=== PATIENT | male | born 1940 | race Caucasian/White ===

== ENCOUNTER 2017-11-16 08:39 | Emergency (ER) | payer MEDICARE ==
[~2017-11-16] VITALS: Ht 162.6 cm; Wt 85.8 kg
[2017-11-16 08:44] VITALS: BP 104/61; PULSE 83; RESP 18; TEMP 97.5; O2SAT 94
[2017-11-16] MEDS ORDERED: PANT40TA3 PO (08:56)
[2017-11-16] MEDS ORDERED: TAMS0.4C4 PO (08:56)
[2017-11-16] MEDS ORDERED: MULTTAB67 PO (08:56)
[2017-11-16] MEDS ORDERED: LISI10TA3 PO (08:56)
[2017-11-16] MEDS ORDERED: SODIUM CHLORIDE 0.9% FLUSH 10 ML FLUSH IVF PRN (09:00)
[2017-11-16 09:05] VITALS: O2SAT 96
[2017-11-16 09:08] LABS: AUTOMATED NEUTROPHIL # 6.2 TH/MM3 (1.8-7.7); BASOPHIL # 0.1 TH/MM3 (0-0.2); BASOPHIL % 0.9 % (0.0-2.0); EOSINOPHIL # 0.2 TH/MM3 (0-0.4); EOSINOPHIL % 2.1 % (0.0-4.0); HEMATOCRIT 42.7 % (39.0-51.0); HEMOGLOBIN 14.1 GM/DL (13.0-17.0); LYMPH % 25.5 % (9.0-44.0); LYMPHOCYTE # 2.6 TH/MM3 (1.0-4.8); MEAN CELL VOLUME 94.7 FL (80.0-100.0); MEAN CORPUSCULAR HEMOGLOBIN 31.3 PG (27.0-34.0); MEAN PLATELET VOLUME 8.5 FL (7.0-11.0); MONO % 9.8 % (0.0-8.0); NEUT % 61.7 % (16.0-70.0); PLATELET COUNT 270 TH/MM3 (150-450); RED BLOOD COUNT 4.51 MIL/MM3 (4.50-5.90); RED CELL DISTRIBUTION WIDTH 13.2 % (11.6-17.2); WHITE BLOOD COUNT 10.1 TH/MM3 (4.0-11.0)
[2017-11-16 09:14] LABS: CHLORIDE 101 MEQ/L (98-107); SODIUM (NA) 134 MEQ/L (136-145)
[2017-11-16 09:19] LABS: ALBUMIN 3.5 GM/DL (3.4-5.0)
[2017-11-16 09:22] LABS: ALT (GPT) 80 U/L (12-78); AST (GOT) 32 U/L (15-37); GLOMERULAR FILTRATION RATE 42 ML/MIN (>89)
[2017-11-16 09:23] LABS: TOTAL PROTEIN 8.6 GM/DL (6.4-8.2)
[2017-11-16 09:25] LABS: ALKALINE PHOSPHATASE 88 U/L (45-117)
--- NOTE | 2017-11-16 09:25 | PD ---
HPI Chief Complaint: General Weakness Time Seen by Provider: 09:12 Travel History International Travel<30 days: No Contact w/Intl Traveler<30days: No Traveled to known affect area: No History of Present Illness HPI 77-year-old male patient with history of renal failure requiring dialysis a year ago according to his daughter, no longer on dialysis, but presents to the ER today for a week and a half history of general weakness, had one episode of vomiting last week, poor p.o. intake, and states that his right foot had been hurting after he hit it on something last week. He denies any fevers, chest pains, abdominal pain, diarrhea, or any other issues. His daughter is concerned because this is the same symptoms he had before he had problems with his kidneys. Modifying Factors: None Associated Signs & Symptoms: general weakness for a week and a half Risk Factors: history of kidney disease PFSH Past Medical History GERD: Yes Hypertension: Yes Past Surgical History Other Surgery: Yes (dialysis 5 yrs ago) Social History Alcohol Use: Yes Tobacco Use: No Substance Use: No Allergies-Medications (Allergen,Severity, Reaction): Coded Allergies: No Known Allergies (Unverified , 11/16/17) Reported Meds & Prescriptions Reported Meds & Active Scripts Active Reported Tamsulosin (Tamsulosin HCl) 0.4 Mg Cap 0.4 Mg PO HS Multiple Vitamin 1 Tab 1 Tab PO DAILY Lisinopril 10 Mg Tab 10 Mg PO DAILY Pantoprazole (Pantoprazole Sodium) 40 Mg Tab 40 Mg PO DAILY Review of Systems Except as stated in HPI: all other systems reviewed are Neg Physical Exam Narrative GENERAL: Well-developed elderly white male patient currently in mild distress. Awake, alert, oriented 3. SKIN: Focused skin assessment warm/dry. There is mild tenderness over the right midfoot area. No palpable deformities. HEAD: Atraumatic. Normocephalic. EYES: Pupils equal and round. No scleral icterus. No injection or drainage. ENT: No nasal bleeding or discharge. Mucous membranes pink and moist. NECK: Trachea midline. No JVD. Supple. CARDIOVASCULAR: Regular rate and rhythm. No murmur appreciated. RESPIRATORY: No accessory muscle use. Clear to auscultation. Breath sounds equal bilaterally. GASTROINTESTINAL: Abdomen soft, non-tender, nondistended. Hepatic and splenic margins not palpable. MUSCULOSKELETAL: No obvious deformities. No clubbing. No cyanosis. No edema. NEUROLOGICAL: Awake and alert. No obvious cranial nerve deficits. Motor grossly within normal limits. Normal speech. PSYCHIATRIC: Appropriate mood and affect; insight and judgment normal. Data Data Last Documented VS Vital Signs Date Time Temp Pulse Resp B/P (MAP) Pulse Ox O2 Delivery O2 Flow Rate FiO2 11/16/17 10:52 64 20 140/77 (98) 97 11/16/17 08:44 97.5 Orders Orders Electrocardiogram (11/16/17 08:50) Complete Blood Count With Diff (11/16/17 08:50) Comprehensive Metabolic Panel (11/16/17 08:50) Magnesium (Mg) (11/16/17 08:50) Ckmb (Isoenzyme) Profile (11/16/17 08:50) Troponin I (11/16/17 08:50) Urinalysis - C+S If Indicated (11/16/17 08:50) Ecg Monitoring (11/16/17 08:50) Iv Access Insert/Monitor (11/16/17 08:50) Oximetry (11/16/17 08:50) Sodium Chloride 0.9% Flush (Ns Flush) (11/16/17 09:00) Foot, Limited (2vws) (11/16/17 09:12) Chest, Single Ap (11/16/17 09:12) Ct Brain W/O Iv Contrast(Rout) (11/16/17 09:12) Influenzae A/B Antigen (11/16/17 09:12) Labs Laboratory Tests Test 11/16/17 09:00 11/16/17 10:35 White Blood Count 10.1 TH/MM3 Red Blood Count 4.51 MIL/MM3 Hemoglobin 14.1 GM/DL Hematocrit 42.7 % Mean Corpuscular Volume 94.7 FL Mean Corpuscular Hemoglobin 31.3 PG Mean Corpuscular Hemoglobin Concent 33.0 % Red Cell Distribution Width 13.2 % Platelet Count 270 TH/MM3 Mean Platelet Volume 8.5 FL Neutrophils (%) (Auto) 61.7 % Lymphocytes (%) (Auto) 25.5 % Monocytes (%) (Auto) 9.8 % Eosinophils (%) (Auto) 2.1 % Basophils (%) (Auto) 0.9 % Neutrophils # (Auto) 6.2 TH/MM3 Lymphocytes # (Auto) 2.6 TH/MM3 Monocytes # (Auto) 1.0 TH/MM3 Eosinophils # (Auto) 0.2 TH/MM3 Basophils # (Auto) 0.1 TH/MM3 CBC Comment DIFF FINAL Differential Comment Blood Urea Nitrogen 44 MG/DL Creatinine 1.60 MG/DL Random Glucose 168 MG/DL Total Protein 8.6 GM/DL Albumin 3.5 GM/DL Calcium Level 9.5 MG/DL Magnesium Level 2.3 MG/DL Alkaline Phosphatase 88 U/L Aspartate Amino Transf (AST/SGOT) 32 U/L Alanine Aminotransferase (ALT/SGPT) 80 U/L Total Bilirubin 1.0 MG/DL Sodium Level 134 MEQ/L Potassium Level 4.2 MEQ/L Chloride Level 101 MEQ/L Carbon Dioxide Level 21.6 MEQ/L Anion Gap 11 MEQ/L Estimat Glomerular Filtration Rate 42 ML/MIN Total Creatine Kinase 71 U/L Troponin I LESS THAN 0.02 NG/ML Urine Collection Type CLEAN CATCH Urine Color YELLOW Urine Turbidity CLEAR Urine pH 5.5 Urine Specific [place] 1.016 Urine Protein NEG mg/dL Urine Glucose (UA) NEG mg/dL Urine Ketones NEG mg/dL Urine Occult Blood NEG Urine Nitrite NEG Urine Bilirubin NEG Urine Leukocyte Esterase NEG Urine WBC 0-2 /hpf Urine Squamous Epithelial Cells 0-5 /hpf Urine Bacteria FEW /hpf Urine Hyaline Casts 0-2 /lpf Microscopic Urinalysis Comment CULT NOT INDICATED MDM Medical Decision Making Medical Screen Exam Complete: Yes Emergency Medical Condition: Yes Medical Record Reviewed: Yes Interpretation(s) EKG shows NSR, no ST elevation or depression, and no arrhythmias. No significant T-wave inversions. Laboratory Tests Test 11/16/17 09:00 11/16/17 10:35 Monocytes (%) (Auto) 9.8 % (0.0-8.0) Monocytes # (Auto) 1.0 TH/MM3 (0-0.9) Blood Urea Nitrogen 44 MG/DL (7-18) Creatinine 1.60 MG/DL (0.60-1.30) Random Glucose 168 MG/DL (74-106) Total Protein 8.6 GM/DL (6.4-8.2) Alanine Aminotransferase (ALT/SGPT) 80 U/L (12-78) Sodium Level 134 MEQ/L (136-145) Estimat Glomerular Filtration Rate 42 ML/MIN (>89) Troponin I LESS THAN 0.02 NG/ML Urine Bacteria FEW /hpf (NONE) Last [address] 11/16/17911 Signed Impressions: Service Date/Time: Thursday, November 16, 2017 09:35 - CONCLUSION: 1. No acute findings in the brain. No extra-axial fluid collections. 2. Symmetric bilateral hypoattenuation in the frontal white matter and lacunar infarct of the left striatum. 1. Robby Porras MD Foot X-Ray 11/16/17911 Signed Impressions: Service Date/Time: Thursday, November 16, 2017 09:27 - CONCLUSION: No evidence of recent bony injury. Robby Porras MD Chest X-Ray 11/16/17911 Signed Impressions: Service Date/Time: Thursday, November 16, 2017 09:27 - CONCLUSION: The lungs are clear. Robby Porras MD Differential Diagnosis General weakness: Dehydration versus influenza/viral syndrome versus pneumonia versus sepsis versus metabolic issues versus dysrhythmias versus ACS Narrative Course Lab work and x-rays did not show any signs of significant acute processes. His BUN and creatinine is mildly elevated, likely secondary to mild dehydration, patient has not been taking good p.o. intake. He is not vomiting, abdomen is benign, he has no focal neurological deficits. Vital signs are stable in the ER. Influenza testing is negative. CAT scan did not show any signs of acute intracranial processes. At this point, my plan would be to have him follow-up with his regular doctor. Return for new issues as needed. The plan has been discussed with the patient and daughter and they state understanding. I would encourage him to eat and drink on a more consistent basis. Diagnosis Primary Impression: General weakness Additional Impression: Mild dehydration Disposition: 01 DISCHARGE HOME Condition: Stable Isamar Willard MD Nov 16, 2017 09:25
--- NOTE | 2017-11-16 09:48 | RADRPT ---
EXAM DATE/TIME: 11/16/2017 09:27 [facility] COMPARISON: No previous studies available for comparison. INDICATIONS : Weakness, palpitations. MEDICAL HISTORY : Hypertension. Gastroesophageal reflux disease. History of dialysis. Gout. SURGICAL HISTORY : None. ENCOUNTER: Initial ACUITY: 1 week PAIN SCORE: 2/10 LOCATION: chest FINDINGS: A single view of the chest demonstrates the lungs to be symmetrically aerated without evidence of mas s, infiltrate or effusion. The cardiomediastinal contours are unremarkable. Osseous structures are intact. CONCLUSION: The lungs are clear. Robby Porras MD on November 16, 2017 at 9:46 Board Certified Radiologist. This report was verified electronically.
--- NOTE | 2017-11-16 09:49 | RADRPT ---
EXAM DATE/TIME: 11/16/2017 09:27 [facility] COMPARISON: No previous studies available for comparison. INDICATIONS : Right dorsal foot pain & redness after hitting it one week ago. Patient states it may be gout. MEDICAL HISTORY : Hypertension. Gastroesophageal reflux disease. History of dialysis.Gout. SURGICAL HISTORY : None. ENCOUNTER: Initial ACUITY: 1 week PAIN SCORE: 8/10 LOCATION: Right dorsal foot FINDINGS: Two view examination of the right foot demonstrates no soft tissue swelling, dislocation, or fracture . The calcaneus is intact. Moderate-sized retrocalcaneal spur. No radiopaque foreign bodies. Bony mineralization is normal. CONCLUSION: No evidence of recent bony injury. Robby Porras MD on November 16, 2017 at 9:47 Board Certified Radiologist. This report was verified electronically.
[2017-11-16 09:52] LABS: CALCIUM 9.5 MG/DL (8.5-10.1)
[2017-11-16 09:53] VITALS: BP 138/69; PULSE 71; RESP 20; O2SAT 96
[2017-11-16 09:53] LABS: BICARBONATE 21.6 MEQ/L (21.0-32.0); GLUCOSE,RANDOM 168 MG/DL (74-106); MAGNESIUM 2.3 MG/DL (1.5-2.5)
--- NOTE | 2017-11-16 09:55 | RADRPT ---
EXAM DATE/TIME: 11/16/2017 09:35 [facility] COMPARISON: No previous studies available for comparison. INDICATIONS : Generalized weakness for one week. RADIATION DOSE: 56.67 CTDIvol (mGy) MEDICAL HISTORY : Hypertension. Gastroesophageal reflux disease. Renal disease. SURGICAL HISTORY : Head surgery. ENCOUNTER: Initial ACUITY: 1 week PAIN SCALE: 0/10 LOCATION: cranial TECHNIQUE: Multiple contiguous axial images were obtained of the head. Using automated exposure control and adj ustment of the mA and/or kV according to patient size, radiation dose was kept as low as reasonably a chievable to obtain optimal diagnostic quality images. DICOM format image data is available electro nically for review and comparison. FINDINGS: CEREBRUM: The ventricles are normal for age. There is some decreased attenuation in the white matter adjacent to frontal horns and in the frontal barbour radiata. Old lacunar infarct in the anterior left striatu m. No evidence of midline shift, mass lesion, hemorrhage or acute infarction. No extra-axial fluid collections are seen. POSTERIOR FOSSA: The cerebellum and brainstem are intact. The 4th ventricle is midline. The cerebellopontine angle i s unremarkable. EXTRACRANIAL: The visualized portion of the orbits is intact. SKULL: Bilateral frontal andra holes. The calvarium is otherwise intact. CONCLUSION: 1. No acute findings in the brain. No extra-axial fluid collections. 2. Symmetric bilateral hypoattenuation in the frontal white matter and lacunar infarct of the left st riatum. 1. Robby Porras MD on November 16, 2017 at 9:51 Board Certified Radiologist. This report was verified electronically.
[2017-11-16 10:01] LABS: TROPONIN I LESS THAN 0.02 NG/ML (0.02-0.05)
[2017-11-16 10:09] LABS: BLOOD UREA NITROGEN 44 MG/DL (7-18)
[2017-11-16 10:43] LABS: BILIRUBIN, URINE NEG (NEG); BLOOD, URINE NEG (NEG); GLUCOSE,URINE NEG (NEG); KETONE, URINE NEG (NEG); NITRITE,URINE NEG (NEG); PH, URINE 5.5 (5.0-8.5); URINE LEUKOCYTE ESTERASE NEG (NEG)
[2017-11-16 10:50] LABS: URINE COLOR YELLOW (YELLW/STRAW)
[2017-11-16 10:51] LABS: HYALINE CAST, URINE 0-2 /lpf (RARE); WBC, URINE 0-2 /hpf (0-5)
[2017-11-16 10:52] VITALS: BP 140/77; PULSE 64; RESP 20; O2SAT 97
[2017-11-16 10:52] LABS: BACTERIA, URINE FEW /hpf; SQUAMOUS EPITHELIAL CELL URINE 0-5 /hpf (0-5)
--- NOTE | 2017-11-16 18:25 | EKG ---
Date Performed: 11/16/2017 Time Performed: 08:56:49 PTAGE: 77 years EKG: Sinus rhythm WITH FIRST DEGREE AV BLOCK MODERATE VOLTAGE CRITERIA FOR LVH, CONSIDER NORMAL VARIANT ABNORMAL ECG NO PREVIOUS TRACING DOCTOR: Sully Barnard Interpretating Date/Time 11/16/2017 18:20:41
== END 2017-11-16 11:30 | disposition home or self-care (01) ==
LOC: PHED 08:39
DX: R53.1 Weakness (principal); E86.0 Dehydration; M79.671 Pain in right foot; R94.31 Abnormal electrocardiogram [ECG] [EKG]; I10 Essential (primary) hypertension; K21.9 Gastro-esophageal reflux disease without esophagitis; Z87.448 Personal history of other diseases of urinary system
CPT/HCPCS: 70450; 71045; 73620; 80053; 81001; 82550; 83735; 84484; 85025; 87804; 93005; 99285